=== PATIENT | male | born 1965 | race Two or more races ===

== ENCOUNTER 2016-12-22 14:53 | Inpatient (IN) | payer OTHER ==
[2016-12-22 16:45] VITALS: BMI 23.1
--- NOTE | 2016-12-22 17:59 | HP ---
COWS - Scale Resting Pulse: 0= [place] 80 or Below Sweatin=Flushed/Facial Moisture Restless Observation: 3= Extraneous Movement Pupil Size: 2= Moderately Dilated Bone or Joint Aches: 2= Severe Diffuse Aches Runny Nose/ Eye Tearin= Runny Nose/Eyes GI Upset > 30mins: 3= Vomiting/Diarrhea Tremor Observation: 2= Slight Tremor Visible Yawning Observation: 2= >3x During Session Anxiety or Irritability: 2=Irritable/Anxious Goose Flesh Skin: 0=Smooth Skin COWS Score: 20 CIWA Score - CIWA Score Nausea/Vomitin Muscle Tremors: 3 Anxiety: 3 Agitation: 3 Paroxysmal Sweats: 2 Orientation: 0-Oriented Tacttile Disturbances: 2-Mild Itch/Numbness/Burn Auditory Disturbances: 2-Mild Harshness/Frighten Visual Disturbances: 2-Mild Sensitivity Headache: 2-Mild CIWA-Ar Total Score: 22 Admission ROS BHS - HPI Chief Complaint: i need help to stop using heroin,alcohol and cocaine Allergies/Adverse Reactions: Allergies Allergy/AdvReac Type Severity Reaction Status Date / Time No Known Allergies Allergy Verified 12/22/16 16:26 History of Present Illness: this 51 years old male iwth heroin,alcohol and cocaine dependence,seekig detox, last treatment [facility] 07/05 multiple admissions in detox,keep relapsing nicotine dependence weight loss longest period of sobriety 10 years Exam Limitations: No Limitations - Ebola screening Have you traveled outside of the country in the last 21 days: No Have you had contact with anyone from an Ebola affected area: No Do you have a fever: No - Review of Systems Constitutional: Chills, Diaphoresis, Loss of Appetite, Malaise, Night Sweats, Changes in sleep, Weakness, Unintentional Wgt. Loss EENT: reports: Tearing, Nose Congestion Respiratory: reports: Other (asthma) Cardiac: reports: No Symptoms Reported GI: reports: Diarrhea, Nausea, Vomiting, Abdominal cramping : reports: No Symptoms Reported Musculoskeletal: reports: Back Pain, Joint Pain, Muscle Pain, Joint Stiffness Integumentary: reports: Dryness Neuro: reports: Headache, Tremors Endocrine: reports: No Symptoms Reported Hematology: reports: No Symptoms Reported Psychiatric: reports: No Sypmtoms Reported, Judgement Intact, Mood/Affect Appropiate, Orientated x3 Patient History - Patient Medical History Hx Anemia: No Hx Asthma: Yes (on albuerol inhlaer) Hx Chronic Obstructive Pulmonary Disease (COPD): No Hx Cancer: No Hx Cardiac Disorders: No Hx Congestive Heart Failure: No Hx Hypertension: Yes (on amlodipine 10 mgs) Hx Hypercholesterolemia: No Hx Pacemaker: No HX Cerebrovascular Accident: No Hx Seizures: No Hx Dementia: No Hx Diabetes: No Hx Gastrointestinal Disorders: No Hx Liver Disease: No Hx Genitourinary Disorders: No Hx Sexually Transmitted Disorders: No Hx Renal Disease (ESRD): No Hx Thyroid Disease: No Hx Human Immunodeficiency Virus (HIV): No (last 10/02) Hx Hepatitis C: Yes (being monitored by pmd) Hx Depression: No Hx Suicide Attempt: No Hx Bipolar Disorder: No Hx Schizophrenia: No Other Medical History: no suicidal,no homicidal - Patient Surgical History Past Surgical History: No Hx Neurologic Surgery: No Hx Cataract Extraction: No Hx Cardiac Surgery: No Hx Lung Surgery: No Hx Breast Surgery: No Hx Breast Biopsy: No Hx Abdominal Surgery: Yes (LT INGUINAL HERNIA-2014) Hx Appendectomy: No Hx Cholecystectomy: No Hx Genitourinary Surgery: No Hx Orthopedic Surgery: No Anesthesia Reaction: No - PPD History Previous Implant?: Yes Documented Results: Negative w/proof Implanted On Prior [facility] Admission?: Yes Date: 03/05/12 PPD to be Administered?: Yes - Smoking Cessation Smoking history: Current every day smoker Aproximately how many cigarettes per day: 20 Hx Chewing Tobacco Use: No Initiated information on smoking cessation: Yes 'Breaking Loose' booklet given: 12/22/16 - Substance & Tx. History Hx Alcohol Use: Yes Hx Substance Use: Yes Substance Use Type: Alcohol, Cocaine, Heroin Hx Substance Use Treatment: Yes ([facility] 07/05) - Substances Abused Alcohol Route: Oral Frequency: Daily Amount used: VODKA(2 PINTS) Age of first use: 20 Date of Last Use: 12/21/16 Heroin Route: Injection Frequency: Daily Amount used: 10-15 BAGS Age of first use: 25 Date of Last Use: 12/21/16 Cocaine Route: Injection Frequency: Daily Amount used: 4 BAGS Age of first use: 20 Date of Last Use: 12/21/16 Family Disease History - Family Disease History Family History: Denies Admission Physical Exam BHS - Vital Signs Vital Signs: Vital Signs - 24 hr 12/22/16 16:31 Temperature 97.3 F L Pulse Rate 58 L Respiratory 20 Rate Blood Pressure 120/80 - Physical General Appearance: Yes: Moderate Distress, Tremorous, Irritable, Sweating, Anxious HEENTM: Yes: Hearing grossly Normal, Normocephalic, NALINI, Pharynx Normal Respiratory: Yes: Lungs Clear, Normal Breath Sounds, No Respiratory Distress Neck: Yes: Within Normal Limits, Supple, Trachea in good position Breast: Yes: Within Normal Limits Cardiology: Yes: Within Normal Limits, Regular Rhythm, Regular Rate, S1, S2 Abdominal: Yes: Within Normal Limits, Normal Bowel Sounds, Non Tender, Flat, Soft Genitourinary: Yes: Within Normal Limits, Burning, Frequency, [place]ing Back: Yes: Within Normal Limits, Muscle Spasm Musculoskeletal: Yes: full range of Motion, Back pain, Joint Stiffness, Muscle Pain Extremities: Yes: Normal Range of Motion, Tremors Neurological: Yes: fluid designer II-XII NML intact, Fully Oriented, Alert, Motor Strength 5/5 Integumentary: Yes: Dry, Track Rapp Lymphatic: Yes: Within Normal Limits - Diagnostic (1) Opioid dependence with withdrawal Current Visit: Yes Status: Acute (2) Alcohol dependence with uncomplicated withdrawal Current Visit: Yes Status: Acute (3) Cocaine dependence Current Visit: No Status: Active (4) Weight loss Current Visit: Yes Status: Acute (5) Hepatitis C Current Visit: Yes Status: Acute (6) Nicotine dependence Current Visit: Yes Status: Acute (7) Asthma Current Visit: Yes Status: Acute (8) Hypertension Current Visit: Yes Status: Acute Cleared for Admission [facility] - Detox or Rehab [facility] Level of Care: Medically Managed Detox Regimen/Protocol: Methadone/Librium [facility] Breath Alcohol Content Breath Alcohol Content: 0 Urine Drug Screen - Results Drug Screen Negative: No Urine Drug Screen Results: ANN-Cocaine, OPI-Opiates
[2016-12-22] MEDS ORDERED: diphenhydrAMINE HCL 50 MG CAPSULE PO PRN (18:19)
[2016-12-22] MEDS ORDERED: IBUPROFEN 400 MG TABLET (FP) PO PRN (18:19)
[2016-12-22] MEDS ORDERED: chlordiazePOXIDE HCL 25 MG CAPSULE PO ONE (18:19)
[2016-12-22] MEDS ORDERED: LOPERAMIDE HCL 2 MG CAPSULE PO PRN (18:19)
[2016-12-22] MEDS ORDERED: ACETAMINOPHEN 325 MG TABLET (FP) PO PRN (18:19)
[2016-12-22] MEDS ORDERED: MENTHOL/PHENOL 1 EACH UD MM PRN (18:19)
[2016-12-22] MEDS ORDERED: NICOTINE POLACRILEX 2 MG GUM BUC PRN (18:19)
[2016-12-22] MEDS ORDERED: chlordiazePOXIDE HCL 25 MG CAPSULE PO PRN (18:19)
[2016-12-22] MEDS ORDERED: MAGNESIUM CITRATE 300 ML BOTTLE PO PRN (18:19)
[2016-12-22] MEDS ORDERED: hydrOXYzine PAMOATE 25 MG CAPSULE (FP) PO PRN (18:19)
[2016-12-22] MEDS ORDERED: METHADONE HCL 10 MG TABLET (FOR DETOX USE ONLY) PO ONE ×2 (18:19→23:00)
[2016-12-22] MEDS ORDERED: MAGNESIUM HYDROX 2400MG/30ML ORAL SUSPENSION 30 ML CUP PO PRN (18:19)
[2016-12-22] MEDS ORDERED: guaiFENesin/D-METHORPHAN HB 10 ML UNIT-DOSE CUPS PO PRN (18:19)
[2016-12-22] MEDS ORDERED: P-EPHED 60MG/TRIPROLIDI 2.5MG TABLET PO PRN (18:19)
[2016-12-22] MEDS ORDERED: MAG HYDROX/AL HYDROX/SIMETH 30 ML UNIT-DOSE CUP PO PRN (18:19)
[2016-12-22] MEDS ORDERED: ALBUTEROL SO4 6.7 GM HFA INHALER IH PRN (18:25)
[2016-12-22] MEDS: amLODIPine BESYLATE 10 MG TABLET (FP) PO SCH (18:45)
[2016-12-22] MEDS: cloNIDine HCL 0.1 MG TABLET PO SCH (22:28)
[2016-12-22] MEDS: THIAMINE HCL 100 MG TABLET (FP) PO SCH (22:28)
[2016-12-22] MEDS: chlordiazePOXIDE HCL 25 MG CAPSULE PO SCH (22:29)
[2016-12-23] MEDS: chlordiazePOXIDE HCL 25 MG CAPSULE PO SCH ×4 (05:42→23:02)
[2016-12-23] MEDS ORDERED: METHADONE HCL 10 MG TABLET (FOR DETOX USE ONLY) PO SCH (10:00)
[2016-12-23 10:02] LABS: MCH 27.7 pg (25.7-33.7); MCHC 32.7 g/dl (32.0-35.9); MEAN CELL VOLUME 84.8 fl (80-96); MEAN PLT VOLUME 9.3 fl (7.5-11.1); PLATELET COUNT 136 K/MM3 (134-434); RDW 14.9 % (11.9-15.9); WHITE BLOOD COUNT 5.3 K/mm3 (4.0-10.0)
[2016-12-23 10:30] LABS: ALBUMIN 3.6 g/dl (3.4-5.0); ALK PHOS 54 U/L (45-117); ANION GAP 5 (8-16); BILIRUBIN,TOTAL 0.4 mg/dL (0.2-1.0); CALCIUM 8.8 mg/dL (8.5-10.1); CO2 31 mmol/L (21-32); CREATININE 0.6 mg/dL (0.7-1.3); GLUCOSE,RANDOM 85 mg/dL (74-106); SGOT/AST 23 U/L (15-37); SGPT/ALT 34 U/L (12-78); TOT PROT 7.5 g/dl (6.4-8.2)
[2016-12-23] MEDS: PRENATAL VITAMINS W/ FOLIC ACID TABLET (FP) PO SCH (10:36)
[2016-12-23] MEDS: cloNIDine HCL 0.1 MG TABLET PO SCH ×2 (10:36→23:02)
[2016-12-23] MEDS: amLODIPine BESYLATE 10 MG TABLET (FP) PO SCH (10:36)
[2016-12-23 12:08] LABS: HIV 1 & 2 AB NEGATIVE; HIV 1 AGp24 NEGATIVE
--- NOTE | 2016-12-23 14:16 | PN ---
S CIWA - CIWA Score Nausea/Vomitin-Mild Nausea/No Vomiting Muscle Tremors: 4-Moderate,w/Arms Extend Anxiety: 2 Agitation: 3 Paroxysmal Sweats: 3 Orientation: 0-Oriented Tacttile Disturbances: 2-Mild Itch/Numbness/Burn Auditory Disturbances: 0-None Visual Disturbances: 2-Mild Sensitivity Headache: 3-Moderate CIWA-Ar Total Score: 20 BHS COWS - Scale Resting Pulse: 0= [place] 80 or Below Sweatin= Chills/Flushing Restless Observation: 1= Difficult to Sit Still Pupil Size: 0= Normal to Room Light Bone or Joint Aches: 2= Severe Diffuse Aches Runny Nose/ Eye Tearin= Runny Nose/Eyes GI Upset > 30mins: 1= Stomach Cramp Tremor Observation of Outstretched Hands: 2= Slight Tremor Visible Yawning Observation: 2= >3x During Session Anxiety or Irritability: 2=Irritable/Anxious Goose Flesh Skin: 0=Smooth Skin COWS Score: 13 S Progress Note (SOAP) Subjective: Interrupted Sleep, Fatigue, H/A, Tremors, Body Aches, Sweating. Objective: PT. A & O X 3. NO ACUTE DISTRESS. 12/23/16 14:14 Vital Signs Temperature 96.7 F L 12/23/16 13:19 Pulse Rate 59 L 12/23/16 13:19 Respiratory Rate 18 12/23/16 13:19 Blood Pressure 116/83 12/23/16 13:19 O2 Sat by Pulse Oximetry (%) Laboratory Tests 12/23/16 12/23/16 12/23/16 07:00 07:00 07:00 WBC 5.3 D RBC 5.19 Hgb 14.4 Hct 44.0 MCV 84.8 MCH 27.7 MCHC 32.7 RDW 14.9 Plt Count 136 MPV 9.3 Sodium 140 Potassium 4.5 Chloride 104 Carbon Dioxide 31 Anion Gap 5 L BUN 13 Creatinine 0.6 L D Creat Clearance w eGFR > 60 Random Glucose 85 D Calcium 8.8 Total Bilirubin 0.4 D AST 23 ALT 34 D Alkaline Phosphatase 54 Total Protein 7.5 Albumin 3.6 RPR Titer HIV 1&2 Antibody Screen Negative HIV P24 Antigen Negative 12/23/16 07:00 WBC RBC Hgb Hct MCV MCH MCHC RDW Plt Count MPV Sodium Potassium Chloride Carbon Dioxide Anion Gap BUN Creatinine Creat Clearance w eGFR Random Glucose Calcium Total Bilirubin AST ALT Alkaline Phosphatase Total Protein Albumin RPR Titer Nonreactive HIV 1&2 Antibody Screen HIV P24 Antigen LABS NOTED. UA RESULTS PENDING. 12/23/16 14:16 Assessment: 12/23/16 14:14 WITHDRAWAL SYMPTOMS. Plan: CONTINUE DETOX.
[2016-12-23] MEDS: CYCLOBENZAPRINE HCL 10 MG TABLET (FP) PO PRN (15:24)
[2016-12-23 15:33] LABS: URINE APPEARANCE CLEAR; URINE BILIRUBIN NEGATIVE (NEGATIVE); URINE BLOOD NEGATIVE (NEGATIVE); URINE COLOR LTYELLOW; URINE GLUCOSE (UA) NEGATIVE (NEGATIVE); URINE KETONE NEGATIVE (NEGATIVE); URINE LEUK ESTERASE NEGATIVE (NEGATIVE); URINE NITRITE NEGATIVE (NEGATIVE); URINE PROTEIN NEGATIVE (NEGATIVE); URINE UROBILINOGEN NEGATIVE mg/dL (0.2-1.0)
[2016-12-23] MEDS: THIAMINE HCL 100 MG TABLET (FP) PO SCH (23:02)
[2016-12-24] MEDS: chlordiazePOXIDE HCL 25 MG CAPSULE PO SCH ×3 (05:22→17:25)
[2016-12-24] MEDS: PRENATAL VITAMINS W/ FOLIC ACID TABLET (FP) PO SCH (10:34)
[2016-12-24] MEDS: METHADONE HCL 5 MG TABLET (FOR DETOX USE ONLY) PO SCH (10:34)
[2016-12-24] MEDS: cloNIDine HCL 0.1 MG TABLET PO SCH ×2 (10:34→22:12)
[2016-12-24] MEDS: amLODIPine BESYLATE 10 MG TABLET (FP) PO SCH (10:34)
--- NOTE | 2016-12-24 11:30 | PN ---
[facility] CIWA - CIWA Score Nausea/Vomitin-No Nausea/No Vomiting Muscle Tremors: 4-Moderate,w/Arms Extend Anxiety: 4-Mod. Anxious/Guarded Agitation: 4-Moderately Restless Paroxysmal Sweats: 1-Minimal Palms Moist Orientation: 0-Oriented Tacttile Disturbances: 3-Moderate Itch/Numb/Burn Auditory Disturbances: 0-None Visual Disturbances: 0-None Headache: 0-None Present CIWA-Ar Total Score: 16 S COWS - Scale Resting Pulse: 0= [place] 80 or Below Sweatin= Chills/Flushing Restless Observation: 3= Extraneous Movement Pupil Size: 2= Moderately Dilated Bone or Joint Aches: 4=Acute Joint/Muscle Pain Runny Nose/ Eye Tearin= Nasal Congestion GI Upset > 30mins: 1= Stomach Cramp Tremor Observation of Outstretched Hands: 1= Tremor [place], Not Seen Yawning Observation: 1= 1-2x During Session Anxiety or Irritability: 2=Irritable/Anxious Goose Flesh Skin: 0=Smooth Skin COWS Score: 16 [facility] Progress Note (SOAP) Subjective: ANXIETY,SWEATS,TREMORS,INTERMITTENT SLEEP. Objective: 12/24/16 11:29 Vital Signs Temperature 96.3 F L 12/24/16 09:22 Pulse Rate 63 12/24/16 09:22 Respiratory Rate 16 12/24/16 09:22 Blood Pressure 119/83 12/24/16 09:22 O2 Sat by Pulse Oximetry (%) Laboratory Last Values WBC 5.3 K/mm3 (4.0-10.0) D 12/23/16 07:00 RBC 5.19 M/mm3 (4.00-5.60) 12/23/16 07:00 Hgb 14.4 GM/dL (11.7-16.9) 12/23/16 07:00 Hct 44.0 % (35.4-49) 12/23/16 07:00 MCV 84.8 fl (80-96) 12/23/16 07:00 MCH 27.7 pg (25.7-33.7) 12/23/16 07:00 MCHC 32.7 g/dl (32.0-35.9) 12/23/16 07:00 RDW 14.9 % (11.9-15.9) 12/23/16 07:00 Plt Count 136 K/MM3 (134-434) 12/23/16 07:00 MPV 9.3 fl (7.5-11.1) 12/23/16 07:00 Sodium 140 mmol/L (136-145) 12/23/16 07:00 Potassium 4.5 mmol/L (3.5-5.1) 12/23/16 07:00 Chloride 104 mmol/L (98-107) 12/23/16 07:00 Carbon Dioxide 31 mmol/L (21-32) 12/23/16 07:00 Anion Gap 5 (8-16) L 12/23/16 07:00 BUN 13 mg/dL (7-18) 12/23/16 07:00 Creatinine 0.6 mg/dL (0.7-1.3) L D 12/23/16 07:00 Creat Clearance w eGFR > 60 (>60) 12/23/16 07:00 Random Glucose 85 mg/dL (74-106) D 12/23/16 07:00 Calcium 8.8 mg/dL (8.5-10.1) 12/23/16 07:00 Total Bilirubin 0.4 mg/dL (0.2-1.0) D 12/23/16 07:00 AST 23 U/L (15-37) 12/23/16 07:00 ALT 34 U/L (12-78) D 12/23/16 07:00 Alkaline Phosphatase 54 U/L (45-117) 12/23/16 07:00 Total Protein 7.5 g/dl (6.4-8.2) 12/23/16 07:00 Albumin 3.6 g/dl (3.4-5.0) 12/23/16 07:00 Urine Color Ltyellow 12/23/16 13:25 Urine Appearance Clear 12/23/16 13:25 Urine pH 8.0 (5.0-8.0) D 12/23/16 13:25 Ur Specific [place] 1.015 (1.005-1.025) 12/23/16 13:25 Urine Protein Negative (NEGATIVE) 12/23/16 13:25 Urine Glucose (UA) Negative (NEGATIVE) 12/23/16 13:25 Urine Ketones Negative (NEGATIVE) 12/23/16 13:25 Urine Blood Negative (NEGATIVE) 12/23/16 13:25 Urine Nitrite Negative (NEGATIVE) 12/23/16 13:25 Urine Bilirubin Negative (NEGATIVE) 12/23/16 13:25 Urine Urobilinogen Negative mg/dL (0.2-1.0) 12/23/16 13:25 Ur Leukocyte Esterase Negative (NEGATIVE) 12/23/16 13:25 RPR Titer Nonreactive (NONREACTIVE) 12/23/16 07:00 HIV 1&2 Antibody Screen Negative 12/23/16 07:00 HIV P24 Antigen Negative 12/23/16 07:00 Assessment: 12/24/16 11:29 WITHDRAWAL SX Plan: CONTINUE DETOX
[2016-12-24] MEDS: chlordiazePOXIDE 5 MG CAPSULE PO SCH (22:12)
[2016-12-24] MEDS: THIAMINE HCL 100 MG TABLET (FP) PO SCH (22:12)
[2016-12-25] MEDS: chlordiazePOXIDE 5 MG CAPSULE PO SCH ×2 (05:48→10:22)
[2016-12-25] MEDS: PRENATAL VITAMINS W/ FOLIC ACID TABLET (FP) PO SCH (10:21)
[2016-12-25] MEDS: cloNIDine HCL 0.1 MG TABLET PO SCH (10:21)
[2016-12-25] MEDS: CYCLOBENZAPRINE HCL 10 MG TABLET (FP) PO PRN (10:22)
[2016-12-25] MEDS: METHADONE HCL 5 MG TABLET (FOR DETOX USE ONLY) PO SCH (10:22)
[2016-12-25] MEDS: amLODIPine BESYLATE 10 MG TABLET (FP) PO SCH (10:22)
--- NOTE | 2016-12-25 11:44 | PN ---
BHS Progress Note (SOAP) Subjective: ANXIETY,TREMORS,SWEATS,FATIGUE. Objective: 12/25/16 11:43 Vital Signs Temperature 96.9 F L 12/25/16 09:33 Pulse Rate 70 12/25/16 09:33 Respiratory Rate 18 12/25/16 09:33 Blood Pressure 125/83 12/25/16 09:33 O2 Sat by Pulse Oximetry (%) Assessment: 12/25/16 11:43 WITHDRAWAL SX Plan: CONTINUE DETOX
[2016-12-25 13:47] VITALS: BP 116/67; PULSE 84; TEMP 98.7
--- NOTE | 2016-12-25 14:52 | EKG ---
Test Reason : Blood Pressure : / mmHG Vent. Rate : 050 BPM Atrial Rate : 050 BPM P-R Int : 128 ms QRS Dur : 100 ms QT Int : 436 ms P-R-T Axes : 075 075 052 degrees QTc Int : 397 ms SINUS BRADYCARDIA OTHERWISE NORMAL ECG NO PREVIOUS ECGS AVAILABLE Confirmed by LISA BEAL MD ([id number]) on 12/25/2016 2:52:10 PM Referred By: Confirmed By:LISA BEAL MD
--- NOTE | 2016-12-25 15:41 | DS ---
[facility] Detox Discharge Summary Admission Date: 12/22/16 Discharge Date: 12/25/16 - History Present History: Alcohol Dependence, Opioid Dependence Additional Comments: PT DECLINED TO CONTINUE WITH DETOX DESPITE ALL EFFORTS TO ENCOURAGE PT TO STAY AND COMPLETE TX. PT STATES HE IS GOING TO TAKE CARE OF UNFINISHED BUSINESS ABOUT HIS DOCUMENTS IN THE ASSISTED. ALERT O X 3. NAD. Pertinent Past History: ASTHMA HTN HEP C - Physical Exam Results Vital Signs: Vital Signs Temperature 98.7 F 12/25/16 13:47 Pulse Rate 84 12/25/16 13:47 Respiratory Rate 16 12/25/16 13:47 Blood Pressure 116/67 12/25/16 13:47 O2 Sat by Pulse Oximetry (%) Pertinent Admission Physical Exam Findings: WITHDRAWAL SX Laboratory Last Values WBC 5.3 K/mm3 (4.0-10.0) D 12/23/16 07:00 RBC 5.19 M/mm3 (4.00-5.60) 12/23/16 07:00 Hgb 14.4 GM/dL (11.7-16.9) 12/23/16 07:00 Hct 44.0 % (35.4-49) 12/23/16 07:00 MCV 84.8 fl (80-96) 12/23/16 07:00 MCH 27.7 pg (25.7-33.7) 12/23/16 07:00 MCHC 32.7 g/dl (32.0-35.9) 12/23/16 07:00 RDW 14.9 % (11.9-15.9) 12/23/16 07:00 Plt Count 136 K/MM3 (134-434) 12/23/16 07:00 MPV 9.3 fl (7.5-11.1) 12/23/16 07:00 Sodium 140 mmol/L (136-145) 12/23/16 07:00 Potassium 4.5 mmol/L (3.5-5.1) 12/23/16 07:00 Chloride 104 mmol/L (98-107) 12/23/16 07:00 Carbon Dioxide 31 mmol/L (21-32) 12/23/16 07:00 Anion Gap 5 (8-16) L 12/23/16 07:00 BUN 13 mg/dL (7-18) 12/23/16 07:00 Creatinine 0.6 mg/dL (0.7-1.3) L D 12/23/16 07:00 Creat Clearance w eGFR > 60 (>60) 12/23/16 07:00 Random Glucose 85 mg/dL (74-106) D 12/23/16 07:00 Calcium 8.8 mg/dL (8.5-10.1) 12/23/16 07:00 Total Bilirubin 0.4 mg/dL (0.2-1.0) D 12/23/16 07:00 AST 23 U/L (15-37) 12/23/16 07:00 ALT 34 U/L (12-78) D 12/23/16 07:00 Alkaline Phosphatase 54 U/L (45-117) 12/23/16 07:00 Total Protein 7.5 g/dl (6.4-8.2) 12/23/16 07:00 Albumin 3.6 g/dl (3.4-5.0) 12/23/16 07:00 Urine Color Ltyellow 12/23/16 13:25 Urine Appearance Clear 12/23/16 13:25 Urine pH 8.0 (5.0-8.0) D 12/23/16 13:25 Ur Specific [place] 1.015 (1.005-1.025) 12/23/16 13:25 Urine Protein Negative (NEGATIVE) 12/23/16 13:25 Urine Glucose (UA) Negative (NEGATIVE) 12/23/16 13:25 Urine Ketones Negative (NEGATIVE) 12/23/16 13:25 Urine Blood Negative (NEGATIVE) 12/23/16 13:25 Urine Nitrite Negative (NEGATIVE) 12/23/16 13:25 Urine Bilirubin Negative (NEGATIVE) 12/23/16 13:25 Urine Urobilinogen Negative mg/dL (0.2-1.0) 12/23/16 13:25 Ur Leukocyte Esterase Negative (NEGATIVE) 12/23/16 13:25 RPR Titer Nonreactive (NONREACTIVE) 12/23/16 07:00 HIV 1&2 Antibody Screen Negative 12/23/16 07:00 HIV P24 Antigen Negative 12/23/16 07:00 - Treatment Hospital Course: Discharged Condition Good - Medication Discharge Medications: Ambulatory Orders Albuterol Sulfate Inhaler - [Ventolin Hfa *Inhaler*] 1 - 2 inh IH Q4H 03/02/12 Amlodipine Besylate [Norvasc -] 10 mg PO DAILY 12/22/16 - Diagnosis (1) Alcohol dependence with uncomplicated withdrawal Current Visit: Yes Status: Acute (2) Asthma Current Visit: Yes Status: Chronic Qualifiers: Asthma severity: mild intermittent Asthma complication type: uncomplicated Qualified Code(s): J45.20 - Mild intermittent asthma, uncomplicated (3) Hepatitis C Current Visit: Yes Status: Chronic Qualifiers: Viral hepatitis chronicity: unspecified (4) Hypertension Current Visit: Yes Status: Acute Qualifiers: Hypertension type: essential hypertension Qualified Code(s): I10 - Essential (primary) hypertension (5) Nicotine dependence Current Visit: Yes Status: Acute Qualifiers: Nicotine product type: cigarettes Substance use status: in withdrawal Qualified Code(s): F17.213 - Nicotine dependence, cigarettes, with withdrawal (6) Opioid dependence with withdrawal Current Visit: Yes Status: Acute (7) Weight loss Current Visit: Yes Status: Acute - AMA Did Patient Leave Against Medical Advice: Yes (AMA)
[2016-12-25] MEDS ORDERED: chlordiazePOXIDE HCL 10 MG CAPSULE PO SCH (23:00)
[2016-12-26] MEDS ORDERED: METHADONE HCL 10 MG TABLET (FOR DETOX USE ONLY) PO SCH (10:00)
[2016-12-27] MEDS ORDERED: METHADONE HCL 5 MG TABLET (FOR DETOX USE ONLY) PO SCH (06:00)
== END 2016-12-25 15:20 | disposition left against medical advice (07) | DRG 770 ==
LOC: YASAS 14:53 → Y3N 15:49
PROVIDERS: ADMIT Internal Medicine; ATTEND Internal Medicine
PROC: HZ2ZZZZ Detoxification Services for Substance Abuse Treatment (ICD-10-PCS; principal; 2016-12-22)
DX: F11.23 Opioid dependence with withdrawal (principal); F10.230 Alcohol dependence with withdrawal, uncomplicated; F14.20 Cocaine dependence, uncomplicated; F17.210 Nicotine dependence, cigarettes, uncomplicated; J45.20 Mild intermittent asthma, uncomplicated; B18.2 Chronic viral hepatitis C; I10 Essential (primary) hypertension; Z87.898 Personal history of other specified conditions; Z59.0 Homelessness
CPT/HCPCS: 36415; 80053; 81003; 85027; 86593; 87389; 93005; 93010

== ENCOUNTER 2017-10-03 11:59 | Inpatient (IN) | payer OTHER ==
[2017-10-03 13:12] VITALS: BMI 23.2
--- NOTE | 2017-10-03 16:44 | HP ---
COWS - Scale Resting Pulse: 1= [place] 81-100 Sweatin= Beads of Sweat on Face Restless Observation: 1= Difficult to Sit Still Pupil Size: 1= Pupils >than Normal Bone or Joint Aches: 1= Mild Discomfort Runny Nose/ Eye Tearin= Nasal Congestion GI Upset > 30mins: 0= None Tremor Observation: 2= Slight Tremor Visible Yawning Observation: 1= 1-2x During Session Anxiety or Irritability: 1=Feels Anxious/Irritable Goose Flesh Skin: 0=Smooth Skin COWS Score: 12 Admission ROS BHS - HPI Chief Complaint: Here for heroin and cocaine withdrawal. Wants to complete detox Allergies/Adverse Reactions: Allergies Allergy/AdvReac Type Severity Reaction Status Date / Time No Known Allergies Allergy Verified 10/03/17 17:37 History of Present Illness: Hx heroin and cocaine use since age 25. Has had several lengthy sober episodes after detox. Wants to complete detox and go to rehab. No hx of outpatient MAT. Past hx. elevated blood pressure but w/o meds x 2 years. Hx. asthma - usually exacerbates in Spring/Summer. Denies recent relapse. Exam Limitations: No Limitations - Ebola screening Have you traveled outside of the country in the last 21 days: No (N) Have you had contact with anyone from an Ebola affected area: No Have you been sick,other than usual withdrawal symptoms: No Do you have a fever: No - Review of Systems Constitutional: Unintentional Wgt. Loss (States weight loss r/t drug use and less desire to eat.) EENT: reports: Nose Congestion Respiratory: reports: No Symptoms reported Cardiac: reports: No Symptoms Reported GI: reports: No Symptoms Reported : reports: No Symptoms Reported Musculoskeletal: reports: Back Pain (R/t withdrawal) Integumentary: reports: Other (Itchy feet - State has a fungus.) Neuro: reports: Tingling (In body r/t w/drawal) Endocrine: reports: No Symptoms Reported Hematology: reports: No Symptoms Reported Psychiatric: reports: Orientated x3, Agitated (r/t withdrawal), Anxious (r/t withdrawal) Patient History - Patient Medical History Hx Anemia: No Hx Asthma: Yes (on albuterol inhlaer) Hx Chronic Obstructive Pulmonary Disease (COPD): No Hx Cancer: No Hx Cardiac Disorders: No Hx Congestive Heart Failure: No Hx Hypertension: Yes (Was on amlodipine 10 mgs. Not in past 2 years.) Hx Hypercholesterolemia: No Hx Pacemaker: No HX Cerebrovascular Accident: No Hx Seizures: No Hx Dementia: No Hx Diabetes: No Hx Gastrointestinal Disorders: No Hx Liver Disease: No Hx Genitourinary Disorders: No Hx Sexually Transmitted Disorders: No Hx Renal Disease (ESRD): No Hx Thyroid Disease: No Hx Human Immunodeficiency Virus (HIV): No (last 10/02) Hx Hepatitis C: Yes (being monitored by pmd. No Tx.) Hx Depression: No Hx Suicide Attempt: No Hx Bipolar Disorder: No Hx Schizophrenia: No - Patient Surgical History Past Surgical History: No Hx Neurologic Surgery: No Hx Cataract Extraction: No Hx Cardiac Surgery: No Hx Lung Surgery: No Hx Breast Surgery: No Hx Breast Biopsy: No Hx Abdominal Surgery: Yes (LT INGUINAL HERNIA-2015) Hx Appendectomy: No Hx Cholecystectomy: No Hx Genitourinary Surgery: No Hx Orthopedic Surgery: No Anesthesia Reaction: No - PPD History Previous Implant?: Yes Documented Results: Negative w/o proof Date: 12/24/16 PPD to be Administered?: Yes - Reproductive History Patient is a Female of Child Bearing Age (11 -55 yrs old): No - Smoking Cessation Smoking history: Current every day smoker Have you smoked in the past 12 months: Yes Aproximately how many cigarettes per day: 20 Hx Chewing Tobacco Use: No Initiated information on smoking cessation: Yes 'Breaking Loose' booklet given: 10/03/17 - Substance & Tx. History Hx Alcohol Use: No Hx Substance Use: Yes Substance Use Type: Cocaine, Heroin - Substances Abused Heroin Route: Injection Frequency: Daily Amount used: 20 bags/day Age of first use: 25 Date of Last Use: 10/03/17 (5 am) Cocaine Route: also uses IV Frequency: Daily Amount used: $40/day Age of first use: 25 Date of Last Use: 10/03/17 (3 am ) Family Disease History - Family Disease History Family Disease History: Diabetes: Grandparent (GM - r/t DM), CA: Sister (Pancreatic) Admission Physical Exam BHS - Vital Signs Vital Signs: Vital Signs - 24 hr 10/03/17 13:09 Temperature 96.8 F L Pulse Rate 83 Respiratory 18 Rate Blood Pressure 145/87 - Physical General Appearance: Yes: Nourished, Appropriately Dressed, Tremorous (Mild tremors on hand extension) HEENTM: Yes: EOMI, Hearing grossly Normal, Normocephalic, Normal Voice, NALINI ( Pupils a3 3 mm.), Nasal Congestion Respiratory: Yes: Lungs Clear, Normal Breath Sounds, No Respiratory Distress, No Accessory Muscle Use Neck: Yes: No masses,lesions,Nodules, Supple Breast: Yes: Breast Exam Deferred Cardiology: Yes: Regular Rhythm, Regular Rate, Murmur (Murmur noted. No associated SOB, CP, edema.) Abdominal: Yes: Normal Bowel Sounds, Non Tender, Flat, Soft Genitourinary: Yes: Within Normal Limits Back: Yes: Within Normal Limits Musculoskeletal: Yes: full range of Motion, Gait Steady Extremities: Yes: Normal Capillary Refill (Radial and pedal pulses (+)), Tremors (Mild tremors on hand extension) Neurological: Yes: forms designer II-XII NML intact, Fully Oriented, Alert, Motor Strength 5/5 Integumentary: Yes: Track Mosquera (Old and new track mosquera on arms), Other (dry, flaky toe nails and skin on both feet) - Diagnostic (1) Hypertension Current Visit: Yes Status: Chronic Qualifiers: Hypertension type: unspecified Qualified Code(s): I10 - Essential (primary ) hypertension (2) Nicotine dependence Current Visit: Yes Status: Acute Qualifiers: Nicotine product type: cigarettes Substance use status: in withdrawal Qualified Code(s): F17.213 - Nicotine dependence, cigarettes, with withdrawal (3) Opioid dependence with withdrawal Current Visit: Yes Status: Acute (4) Asthma Status: Chronic Qualifiers: Asthma severity: mild intermittent Asthma complication type: uncomplicated (5) Hepatitis C Current Visit: No Status: Chronic Qualifiers: Viral hepatitis chronicity: unspecified (6) Tinea pedis of both feet Current Visit: Yes Status: Acute (7) Cardiac murmur, unspecified Current Visit: Yes Status: Chronic BHS Breath Alcohol Content Breath Alcohol Content: 0 Urine Drug Screen - Results Drug Screen Negative: No Urine Drug Screen Results: ANN-Cocaine, OPI-Opiates
[2017-10-03] MEDS ORDERED: IBUPROFEN 400 MG TABLET (FP) PO PRN (17:56)
[2017-10-03] MEDS ORDERED: ACETAMINOPHEN 325 MG TABLET (FP) PO PRN (17:56)
[2017-10-03] MEDS ORDERED: guaiFENesin/D-METHORPHAN HB 10 ML UNIT-DOSE CUPS PO PRN (17:56)
[2017-10-03] MEDS ORDERED: MAGNESIUM HYDROX 2400MG/30ML ORAL SUSPENSION 30 ML CUP PO PRN (17:56)
[2017-10-03] MEDS ORDERED: MAG HYDROX/AL HYDROX/SIMETH 30 ML UNIT-DOSE CUP PO PRN (17:56)
[2017-10-03] MEDS ORDERED: LOPERAMIDE HCL 2 MG CAPSULE PO PRN (17:56)
[2017-10-03] MEDS ORDERED: MAGNESIUM CITRATE 300 ML BOTTLE PO PRN (17:56)
[2017-10-03] MEDS ORDERED: MENTHOL/PHENOL 1 EACH UD MM PRN (17:56)
[2017-10-03] MEDS ORDERED: P-EPHED 60MG/TRIPROLIDI 2.5MG TABLET PO PRN (17:56)
[2017-10-03] MEDS ORDERED: ALBUTEROL SO4 18 GM HFA INHALER IH PRN (18:00)
[2017-10-03] MEDS ORDERED: NICOTINE POLACRILEX 2 MG GUM BUC PRN (19:24)
[2017-10-03] MEDS ORDERED: METHADONE HCL 10 MG TABLET (FOR DETOX USE ONLY) PO ONE ×2 (19:30→23:00)
[2017-10-03] MEDS: diazePAM 5 MG TABLET PO PRN (20:56)
[2017-10-03] MEDS: CLOTRIMAZOLE 1% CREAM 15 GM TUBE TP SCH (22:32)
[2017-10-03] MEDS: THIAMINE HCL 100 MG TABLET (FP) PO SCH (22:32)
[2017-10-03] MEDS: MELATONIN 5 MG TABLETS PO PRN (22:33)
[2017-10-04 02:07] LABS: URINE APPEARANCE TURBID; URINE BILIRUBIN NEGATIVE (<2.0 mg/dL); URINE BLOOD NEGATIVE (NEGATIVE); URINE COLOR YELLOW; URINE GLUCOSE (UA) NEGATIVE (NEGATIVE); URINE KETONE NEGATIVE (NEGATIVE); URINE LEUK ESTERASE NEGATIVE (NEGATIVE); URINE NITRITE NEGATIVE (NEGATIVE); URINE PROTEIN NEGATIVE (NEGATIVE)
[2017-10-04] MEDS: diazePAM 5 MG TABLET PO PRN ×2 (05:53→22:52)
[2017-10-04] MEDS ORDERED: METHADONE HCL 10 MG TABLET (FOR DETOX USE ONLY) PO ONE (10:00)
[2017-10-04] MEDS: CLOTRIMAZOLE 1% CREAM 15 GM TUBE TP SCH ×2 (10:29→22:50)
[2017-10-04] MEDS: NICOTINE 21 MG/24 HOURS TOPICAL PATCH TD SCH (10:30)
[2017-10-04] MEDS: PRENATAL VITAMINS W/ FOLIC ACID TABLET (FP) PO SCH (10:30)
[2017-10-04 10:43] LABS: HEMATOCRIT 39.9 % (35.4-49); HEMOGLOBIN 13.3 GM/dL (11.7-16.9); MCH 27.7 pg (25.7-33.7); MCHC 33.4 g/dl (32.0-35.9); MEAN CELL VOLUME 82.9 fl (80-96); MEAN PLT VOLUME 9.6 fl (7.5-11.1); PLATELET COUNT 127 K/MM3 (134-434); RBC 4.81 M/mm3 (4.00-5.60); RDW 13.6 % (11.9-15.9); WHITE BLOOD COUNT 5.6 K/mm3 (4.0-10.0)
[2017-10-04 10:54] LABS: CHLORIDE 109 mmol/L (98-107); SODIUM 141 mmol/L (136-145)
[2017-10-04 11:13] LABS: ALBUMIN 3.1 g/dl (3.4-5.0); ALK PHOS 54 U/L (45-117); ANION GAP 8 (8-16); BILIRUBIN,TOTAL 0.6 mg/dL (0.2-1.0); BLOOD UREA NITROGEN 11 mg/dL (7-18); CALCIUM 8.2 mg/dL (8.5-10.1); CO2 24 mmol/L (21-32); CREATININE 0.7 mg/dL (0.7-1.3); GLUCOSE,RANDOM 97 mg/dL (74-106); SGPT/ALT 41 U/L (12-78); TOT PROT 7.4 g/dl (6.4-8.2)
[2017-10-04 11:15] LABS: POTASSIUM 4.1 mmol/L (3.5-5.1); SGOT/AST 36 U/L (15-37)
--- NOTE | 2017-10-04 13:51 | PN ---
BHS COWS - Scale Resting Pulse: 1= [place] 81-100 Sweatin=Flushed/Facial Moisture Restless Observation: 0= Sits Still Pupil Size: 0= Normal to Room Light Bone or Joint Aches: 1= Mild Discomfort Runny Nose/ Eye Tearin= Nasal Congestion GI Upset > 30mins: 1= Stomach Cramp Tremor Observation of Outstretched Hands: 2= Slight Tremor Visible Yawning Observation: 1= 1-2x During Session Anxiety or Irritability: 2=Irritable/Anxious Goose Flesh Skin: 0=Smooth Skin COWS Score: 11 BHS Progress Note (SOAP) Subjective: Sleep disturbance Sweats shakes abdominal cramp Objective: 10/04/17 13:47 A & O x 3 Redness to L Ac Vital Signs Temperature 97.9 F 10/04/17 09:30 Pulse Rate 77 10/04/17 09:30 Respiratory Rate 18 10/04/17 09:30 Blood Pressure 126/72 10/04/17 09:30 O2 Sat by Pulse Oximetry (%) Laboratory Last Values WBC 5.6 K/mm3 (4.0-10.0) 10/04/17 07:50 RBC 4.81 M/mm3 (4.00-5.60) 10/04/17 07:50 Hgb 13.3 GM/dL (11.7-16.9) 10/04/17 07:50 Hct 39.9 % (35.4-49) 10/04/17 07:50 MCV 82.9 fl (80-96) 10/04/17 07:50 MCH 27.7 pg (25.7-33.7) 10/04/17 07:50 MCHC 33.4 g/dl (32.0-35.9) 10/04/17 07:50 RDW 13.6 % (11.9-15.9) 10/04/17 07:50 Plt Count 127 K/MM3 (134-434) L 10/04/17 07:50 MPV 9.6 fl (7.5-11.1) 10/04/17 07:50 Sodium 141 mmol/L (136-145) 10/04/17 07:50 Potassium 4.1 mmol/L (3.5-5.1) 10/04/17 07:50 Chloride 109 mmol/L (98-107) H 10/04/17 07:50 Carbon Dioxide 24 mmol/L (21-32) D 10/04/17 07:50 Anion Gap 8 (8-16) 10/04/17 07:50 BUN 11 mg/dL (7-18) 10/04/17 07:50 Creatinine 0.7 mg/dL (0.7-1.3) 10/04/17 07:50 Creat Clearance w eGFR > 60 (>60) 10/04/17 07:50 Random Glucose 97 mg/dL (74-106) 10/04/17 07:50 Calcium 8.2 mg/dL (8.5-10.1) L 10/04/17 07:50 Total Bilirubin 0.6 mg/dL (0.2-1.0) D 10/04/17 07:50 AST 36 U/L (15-37) D 10/04/17 07:50 ALT 41 U/L (12-78) D 10/04/17 07:50 Alkaline Phosphatase 54 U/L (45-117) 10/04/17 07:50 Total Protein 7.4 g/dl (6.4-8.2) 10/04/17 07:50 Albumin 3.1 g/dl (3.4-5.0) L 10/04/17 07:50 Urine Color Yellow 10/03/17 22:25 Urine Appearance Turbid 10/03/17 22:25 Urine pH 5.0 (5.0-8.0) D 10/03/17 22:25 Ur Specific [place] 1.025 (1.001-1.035) 10/03/17 22:25 Urine Protein Negative (NEGATIVE) 10/03/17 22:25 Urine Glucose (UA) Negative (NEGATIVE) 10/03/17 22:25 Urine Ketones Negative (NEGATIVE) 10/03/17 22:25 Urine Blood Negative (NEGATIVE) 10/03/17 22:25 Urine Nitrite Negative (NEGATIVE) 10/03/17 22:25 Urine Bilirubin Negative (<2.0 mg/dL) 10/03/17 22:25 Urine Urobilinogen 2.0 mg/dL (0.2-1.0) 10/03/17 22:25 Ur Leukocyte Esterase Negative (NEGATIVE) 10/03/17 22:25 RPR Titer Nonreactive (NONREACTIVE) 10/04/17 07:50 Labs noted Assessment: 10/04/17 13:50 Withdrawal sx Pt states he had an abscess drained from his LAC, no signs of infection Plan: Continue detox Bacitracin for the L AC
--- NOTE | 2017-10-04 13:54 | CONSULT ---
[facility] Psychiatric Consult - Data Date of interview: 10/04/17 Admission source: [facility] Identifying data: mr Logan is approached on TWO occasions for the psychiatric interview.He refused. " I don't have psychiatric problems.Why should I talk to a psychiatrist ? Thank you." Nursing staff is made aware.
[2017-10-04] MEDS: BACITRACIN 0.9 GM PACKET TP SCH ×2 (14:57→22:50)
[2017-10-04] MEDS: THIAMINE HCL 100 MG TABLET (FP) PO SCH (22:50)
[2017-10-04] MEDS: MELATONIN 5 MG TABLETS PO PRN (22:51)
[2017-10-05] MEDS: diazePAM 5 MG TABLET PO PRN ×3 (06:13→20:43)
[2017-10-05] MEDS ORDERED: METHADONE HCL 5 MG TABLET (FOR DETOX USE ONLY) PO ONE (10:00)
[2017-10-05] MEDS: NICOTINE 21 MG/24 HOURS TOPICAL PATCH TD SCH (11:09)
[2017-10-05] MEDS: BACITRACIN 0.9 GM PACKET TP SCH ×2 (11:09→22:45)
[2017-10-05] MEDS: CLOTRIMAZOLE 1% CREAM 15 GM TUBE TP SCH ×2 (11:09→22:48)
[2017-10-05] MEDS: PRENATAL VITAMINS W/ FOLIC ACID TABLET (FP) PO SCH (11:10)
--- NOTE | 2017-10-05 12:39 | PN ---
S COWS - Scale Resting Pulse: 0= [place] 80 or Below Sweatin= Chills/Flushing Restless Observation: 1= Difficult to Sit Still Pupil Size: 0= Normal to Room Light Bone or Joint Aches: 2= Severe Diffuse Aches Runny Nose/ Eye Tearin= None GI Upset > 30mins: 0= None Tremor Observation of Outstretched Hands: 2= Slight Tremor Visible Yawning Observation: 2= >3x During Session Anxiety or Irritability: 2=Irritable/Anxious Goose Flesh Skin: 0=Smooth Skin COWS Score: 10 S Progress Note (SOAP) Subjective: irritable agitation body aches sweats chills Objective: 10/05/17 12:38 Vital Signs Temperature 97.5 F L 10/05/17 10:28 Pulse Rate 58 L 10/05/17 10:28 Respiratory Rate 16 10/05/17 10:28 Blood Pressure 139/93 10/05/17 10:28 O2 Sat by Pulse Oximetry (%) Laboratory Tests 10/03/17 10/04/17 10/04/17 22:25 07:50 07:50 WBC 5.6 RBC 4.81 Hgb 13.3 Hct 39.9 MCV 82.9 MCH 27.7 MCHC 33.4 RDW 13.6 Plt Count 127 L MPV 9.6 Sodium 141 Potassium 4.1 Chloride 109 H Carbon Dioxide 24 D Anion Gap 8 BUN 11 Creatinine 0.7 Creat Clearance w eGFR > 60 Random Glucose 97 Calcium 8.2 L Total Bilirubin 0.6 D AST 36 D ALT 41 D Alkaline Phosphatase 54 Total Protein 7.4 Albumin 3.1 L Urine Color Yellow Urine Appearance Turbid Urine pH 5.0 D Ur Specific [place] 1.025 Urine Protein Negative Urine Glucose (UA) Negative Urine Ketones Negative Urine Blood Negative Urine Nitrite Negative Urine Bilirubin Negative Urine Urobilinogen 2.0 Ur Leukocyte Esterase Negative RPR Titer 10/04/17 07:50 WBC RBC Hgb Hct MCV MCH MCHC RDW Plt Count MPV Sodium Potassium Chloride Carbon Dioxide Anion Gap BUN Creatinine Creat Clearance w eGFR Random Glucose Calcium Total Bilirubin AST ALT Alkaline Phosphatase Total Protein Albumin Urine Color Urine Appearance Urine pH Ur Specific [place] Urine Protein Urine Glucose (UA) Urine Ketones Urine Blood Urine Nitrite Urine Bilirubin Urine Urobilinogen Ur Leukocyte Esterase RPR Titer Nonreactive aaox3 ambulating no acute distress Assessment: 10/05/17 12:38 withdrawal sx Plan: continue detox increase fluids
[2017-10-05] MEDS: hydrOXYzine PAMOATE 50 MG CAPSULE (FP) PO PRN (22:46)
[2017-10-05] MEDS: THIAMINE HCL 100 MG TABLET (FP) PO SCH (22:46)
[2017-10-05] MEDS: MELATONIN 5 MG TABLETS PO PRN (22:46)
[2017-10-06] MEDS ORDERED: METHADONE HCL 5 MG TABLET (FOR DETOX USE ONLY) PO ONE (10:00)
[2017-10-06] MEDS: diazePAM 5 MG TABLET PO PRN ×2 (11:04→15:15)
[2017-10-06] MEDS: BACITRACIN 0.9 GM PACKET TP SCH ×2 (11:05→22:42)
[2017-10-06] MEDS: NICOTINE 21 MG/24 HOURS TOPICAL PATCH TD SCH (11:06)
[2017-10-06] MEDS: PRENATAL VITAMINS W/ FOLIC ACID TABLET (FP) PO SCH (11:29)
--- NOTE | 2017-10-06 12:08 | PN ---
BHS Progress Note (SOAP) Subjective: joint pain body ache sweat tremor trouble sleep at night anxiety restlessness Objective: 10/06/17 12:07 Vital Signs Temperature 97.2 F L 10/06/17 09:49 Pulse Rate 65 10/06/17 09:49 Respiratory Rate 16 10/06/17 09:49 Blood Pressure 130/81 10/06/17 09:49 O2 Sat by Pulse Oximetry (%) Laboratory Last Values WBC 5.6 K/mm3 (4.0-10.0) 10/04/17 07:50 RBC 4.81 M/mm3 (4.00-5.60) 10/04/17 07:50 Hgb 13.3 GM/dL (11.7-16.9) 10/04/17 07:50 Hct 39.9 % (35.4-49) 10/04/17 07:50 MCV 82.9 fl (80-96) 10/04/17 07:50 MCH 27.7 pg (25.7-33.7) 10/04/17 07:50 MCHC 33.4 g/dl (32.0-35.9) 10/04/17 07:50 RDW 13.6 % (11.9-15.9) 10/04/17 07:50 Plt Count 127 K/MM3 (134-434) L 10/04/17 07:50 MPV 9.6 fl (7.5-11.1) 10/04/17 07:50 Sodium 141 mmol/L (136-145) 10/04/17 07:50 Potassium 4.1 mmol/L (3.5-5.1) 10/04/17 07:50 Chloride 109 mmol/L (98-107) H 10/04/17 07:50 Carbon Dioxide 24 mmol/L (21-32) D 10/04/17 07:50 Anion Gap 8 (8-16) 10/04/17 07:50 BUN 11 mg/dL (7-18) 10/04/17 07:50 Creatinine 0.7 mg/dL (0.7-1.3) 10/04/17 07:50 Creat Clearance w eGFR > 60 (>60) 10/04/17 07:50 Random Glucose 97 mg/dL (74-106) 10/04/17 07:50 Calcium 8.2 mg/dL (8.5-10.1) L 10/04/17 07:50 Total Bilirubin 0.6 mg/dL (0.2-1.0) D 10/04/17 07:50 AST 36 U/L (15-37) D 10/04/17 07:50 ALT 41 U/L (12-78) D 10/04/17 07:50 Alkaline Phosphatase 54 U/L (45-117) 10/04/17 07:50 Total Protein 7.4 g/dl (6.4-8.2) 10/04/17 07:50 Albumin 3.1 g/dl (3.4-5.0) L 10/04/17 07:50 Urine Color Yellow 10/03/17 22:25 Urine Appearance Turbid 10/03/17 22:25 Urine pH 5.0 (5.0-8.0) D 10/03/17 22:25 Ur Specific [place] 1.025 (1.001-1.035) 10/03/17 22:25 Urine Protein Negative (NEGATIVE) 10/03/17 22:25 Urine Glucose (UA) Negative (NEGATIVE) 10/03/17 22:25 Urine Ketones Negative (NEGATIVE) 10/03/17 22:25 Urine Blood Negative (NEGATIVE) 10/03/17 22:25 Urine Nitrite Negative (NEGATIVE) 10/03/17 22:25 Urine Bilirubin Negative (<2.0 mg/dL) 10/03/17 22:25 Urine Urobilinogen 2.0 mg/dL (0.2-1.0) 10/03/17 22:25 Ur Leukocyte Esterase Negative (NEGATIVE) 10/03/17 22:25 RPR Titer Nonreactive (NONREACTIVE) 10/04/17 07:50 lab noted Assessment: 10/06/17 12:08 withdrawal sx Plan: continue detox
[2017-10-06] MEDS: CLOTRIMAZOLE 1% CREAM 15 GM TUBE TP SCH ×2 (12:17→22:42)
[2017-10-06] MEDS: hydrOXYzine PAMOATE 50 MG CAPSULE (FP) PO PRN ×2 (17:18→22:41)
[2017-10-06] MEDS: THIAMINE HCL 100 MG TABLET (FP) PO SCH (22:41)
[2017-10-06] MEDS: MELATONIN 5 MG TABLETS PO PRN (22:42)
--- NOTE | 2017-10-07 00:52 | EKG ---
Test Reason : Blood Pressure : / mmHG Vent. Rate : 071 BPM Atrial Rate : 071 BPM P-R Int : 142 ms QRS Dur : 090 ms QT Int : 414 ms P-R-T Axes : 079 074 048 degrees QTc Int : 449 ms NORMAL SINUS RHYTHM NORMAL ECG WHEN COMPARED WITH ECG OF 22-DEC-2016 17:48, NO SIGNIFICANT CHANGE WAS FOUND Confirmed by PA GOMEZ MD ([id number]) on 10/07/2017 12:51:46 AM Referred By: Confirmed By:PA GOMEZ MD
[2017-10-07 09:18] VITALS: BP 103/70; PULSE 64; TEMP 97
[2017-10-07] MEDS ORDERED: METHADONE HCL 10 MG TABLET (FOR DETOX USE ONLY) PO ONE (10:00)
--- NOTE | 2017-10-07 10:44 | PN ---
BHS Progress Note (SOAP) Subjective: feeling better less tremor no sweat social with peers in day room Objective: 10/07/17 10:42 Vital Signs Temperature 97.0 F L 10/07/17 09:18 Pulse Rate 64 10/07/17 09:18 Respiratory Rate 16 10/07/17 09:18 Blood Pressure 103/70 10/07/17 09:18 O2 Sat by Pulse Oximetry (%) Laboratory Last Values WBC 5.6 K/mm3 (4.0-10.0) 10/04/17 07:50 RBC 4.81 M/mm3 (4.00-5.60) 10/04/17 07:50 Hgb 13.3 GM/dL (11.7-16.9) 10/04/17 07:50 Hct 39.9 % (35.4-49) 10/04/17 07:50 MCV 82.9 fl (80-96) 10/04/17 07:50 MCH 27.7 pg (25.7-33.7) 10/04/17 07:50 MCHC 33.4 g/dl (32.0-35.9) 10/04/17 07:50 RDW 13.6 % (11.9-15.9) 10/04/17 07:50 Plt Count 127 K/MM3 (134-434) L 10/04/17 07:50 MPV 9.6 fl (7.5-11.1) 10/04/17 07:50 Sodium 141 mmol/L (136-145) 10/04/17 07:50 Potassium 4.1 mmol/L (3.5-5.1) 10/04/17 07:50 Chloride 109 mmol/L (98-107) H 10/04/17 07:50 Carbon Dioxide 24 mmol/L (21-32) D 10/04/17 07:50 Anion Gap 8 (8-16) 10/04/17 07:50 BUN 11 mg/dL (7-18) 10/04/17 07:50 Creatinine 0.7 mg/dL (0.7-1.3) 10/04/17 07:50 Creat Clearance w eGFR > 60 (>60) 10/04/17 07:50 Random Glucose 97 mg/dL (74-106) 10/04/17 07:50 Calcium 8.2 mg/dL (8.5-10.1) L 10/04/17 07:50 Total Bilirubin 0.6 mg/dL (0.2-1.0) D 10/04/17 07:50 AST 36 U/L (15-37) D 10/04/17 07:50 ALT 41 U/L (12-78) D 10/04/17 07:50 Alkaline Phosphatase 54 U/L (45-117) 10/04/17 07:50 Total Protein 7.4 g/dl (6.4-8.2) 10/04/17 07:50 Albumin 3.1 g/dl (3.4-5.0) L 10/04/17 07:50 Urine Color Yellow 10/03/17 22:25 Urine Appearance Turbid 10/03/17 22:25 Urine pH 5.0 (5.0-8.0) D 10/03/17 22:25 Ur Specific [place] 1.025 (1.001-1.035) 10/03/17 22:25 Urine Protein Negative (NEGATIVE) 10/03/17 22:25 Urine Glucose (UA) Negative (NEGATIVE) 10/03/17 22:25 Urine Ketones Negative (NEGATIVE) 10/03/17 22:25 Urine Blood Negative (NEGATIVE) 10/03/17 22:25 Urine Nitrite Negative (NEGATIVE) 10/03/17 22:25 Urine Bilirubin Negative (<2.0 mg/dL) 10/03/17 22:25 Urine Urobilinogen 2.0 mg/dL (0.2-1.0) 10/03/17 22:25 Ur Leukocyte Esterase Negative (NEGATIVE) 10/03/17 22:25 RPR Titer Nonreactive (NONREACTIVE) 10/04/17 07:50 lab noted Assessment: 10/07/17 10:43 mild withdrawal sx Plan: medically supervised detox
[2017-10-07] MEDS: PRENATAL VITAMINS W/ FOLIC ACID TABLET (FP) PO SCH (10:59)
[2017-10-07] MEDS: CLOTRIMAZOLE 1% CREAM 15 GM TUBE TP SCH (10:59)
[2017-10-07] MEDS: BACITRACIN 0.9 GM PACKET TP SCH (10:59)
[2017-10-07] MEDS: NICOTINE 21 MG/24 HOURS TOPICAL PATCH TD SCH (11:00)
--- NOTE | 2017-10-07 12:58 | DS ---
[facility] Detox Discharge Summary Admission Date: 10/03/17 Discharge Date: 10/07/17 - History Present History: Opioid Dependence Additional Comments: 52 years old male admitted on 10/03/17 for opiate withdrawal sx alert oriented x 3 no acute distress wants to leave the detox facility today and return to [facility] for recovery in [facility] teaching on consequences of opiate misuse and the benefit of opiate free through medication assisted program and psychotherapy - Physical Exam Results Vital Signs: Vital Signs Temperature 97.0 F L 10/07/17 09:18 Pulse Rate 64 10/07/17 09:18 Respiratory Rate 16 10/07/17 09:18 Blood Pressure 103/70 10/07/17 09:18 O2 Sat by Pulse Oximetry (%) Pertinent Admission Physical Exam Findings: withdrawal sx Vital Signs Temperature 97.0 F L 10/07/17 09:18 Pulse Rate 64 10/07/17 09:18 Respiratory Rate 16 10/07/17 09:18 Blood Pressure 103/70 10/07/17 09:18 O2 Sat by Pulse Oximetry (%) Laboratory Last Values WBC 5.6 K/mm3 (4.0-10.0) 10/04/17 07:50 RBC 4.81 M/mm3 (4.00-5.60) 10/04/17 07:50 Hgb 13.3 GM/dL (11.7-16.9) 10/04/17 07:50 Hct 39.9 % (35.4-49) 10/04/17 07:50 MCV 82.9 fl (80-96) 10/04/17 07:50 MCH 27.7 pg (25.7-33.7) 10/04/17 07:50 MCHC 33.4 g/dl (32.0-35.9) 10/04/17 07:50 RDW 13.6 % (11.9-15.9) 10/04/17 07:50 Plt Count 127 K/MM3 (134-434) L 10/04/17 07:50 MPV 9.6 fl (7.5-11.1) 10/04/17 07:50 Sodium 141 mmol/L (136-145) 10/04/17 07:50 Potassium 4.1 mmol/L (3.5-5.1) 10/04/17 07:50 Chloride 109 mmol/L (98-107) H 10/04/17 07:50 Carbon Dioxide 24 mmol/L (21-32) D 10/04/17 07:50 Anion Gap 8 (8-16) 10/04/17 07:50 BUN 11 mg/dL (7-18) 10/04/17 07:50 Creatinine 0.7 mg/dL (0.7-1.3) 10/04/17 07:50 Creat Clearance w eGFR > 60 (>60) 10/04/17 07:50 Random Glucose 97 mg/dL (74-106) 10/04/17 07:50 Calcium 8.2 mg/dL (8.5-10.1) L 10/04/17 07:50 Total Bilirubin 0.6 mg/dL (0.2-1.0) D 10/04/17 07:50 AST 36 U/L (15-37) D 10/04/17 07:50 ALT 41 U/L (12-78) D 10/04/17 07:50 Alkaline Phosphatase 54 U/L (45-117) 10/04/17 07:50 Total Protein 7.4 g/dl (6.4-8.2) 10/04/17 07:50 Albumin 3.1 g/dl (3.4-5.0) L 10/04/17 07:50 Urine Color Yellow 10/03/17 22:25 Urine Appearance Turbid 10/03/17 22:25 Urine pH 5.0 (5.0-8.0) D 10/03/17 22:25 Ur Specific [place] 1.025 (1.001-1.035) 10/03/17 22:25 Urine Protein Negative (NEGATIVE) 10/03/17 22:25 Urine Glucose (UA) Negative (NEGATIVE) 10/03/17 22:25 Urine Ketones Negative (NEGATIVE) 10/03/17 22:25 Urine Blood Negative (NEGATIVE) 10/03/17 22:25 Urine Nitrite Negative (NEGATIVE) 10/03/17 22:25 Urine Bilirubin Negative (<2.0 mg/dL) 10/03/17 22:25 Urine Urobilinogen 2.0 mg/dL (0.2-1.0) 10/03/17 22:25 Ur Leukocyte Esterase Negative (NEGATIVE) 10/03/17 22:25 RPR Titer Nonreactive (NONREACTIVE) 10/04/17 07:50 lab noted - Treatment Hospital Course: Detox Protocol Followed, Detoxed Safely, Responded well, Discharged Condition Good, Rehab Referral Accepted Patient has Accepted a Rehab Referral to: [facility] - Medication Discharge Medications: Ambulatory Orders Albuterol Sulfate Inhaler - [Ventolin HFA Inhaler -] 1 - 2 inh IH Q4H #1 inhaler 10/07/17 Amlodipine Besylate [Norvasc -] 10 mg PO DAILY #30 tablet 10/07/17 - Diagnosis (1) Uncomplicated opioid dependence Current Visit: Yes Status: Acute (2) Asthma Current Visit: Yes Status: Chronic Qualifiers: Asthma severity: mild Asthma persistence: intermittent Asthma complication type: uncomplicated Qualified Code(s): J45.20 - Mild intermittent asthma, uncomplicated (3) Hypertension Current Visit: Yes Status: Chronic Qualifiers: Hypertension type: essential hypertension Qualified Code(s): I10 - Essential (primary) hypertension - AMA Did Patient Leave Against Medical Advice: No
[2017-10-08] MEDS ORDERED: METHADONE HCL 5 MG TABLET (FOR DETOX USE ONLY) PO ONE (06:00)
== END 2017-10-07 01:08 | disposition home or self-care (01) | DRG 773 ==
LOC: YASAS 11:59 → Y6N 19:22
PROVIDERS: ADMIT Surgery; ATTEND Surgery
PROC: HZ2ZZZZ Detoxification Services for Substance Abuse Treatment (ICD-10-PCS; principal; 2017-10-03)
DX: F11.20 Opioid dependence, uncomplicated (principal); F14.20 Cocaine dependence, uncomplicated; F12.20 Cannabis dependence, uncomplicated; I10 Essential (primary) hypertension; J45.20 Mild intermittent asthma, uncomplicated; R01.1 Cardiac murmur, unspecified; B35.3 Tinea pedis; B18.2 Chronic viral hepatitis C; Z59.0 Homelessness
CPT/HCPCS: 36415; 80053; 81003; 85027; 86593; 93005; 93010

== ENCOUNTER 2017-12-02 17:05 | Inpatient (IN) | payer OTHER ==
[2017-12-02 19:25] VITALS: BMI 22.2
--- NOTE | 2017-12-02 20:40 | HP ---
COWS - Scale Resting Pulse: 0= [place] 80 or Below Sweatin= Chills/Flushing Restless Observation: 1= Difficult to Sit Still Pupil Size: 1= Pupils >than Normal Bone or Joint Aches: 1= Mild Discomfort Runny Nose/ Eye Tearin= Runny Nose/Eyes GI Upset > 30mins: 3= Vomiting/Diarrhea Tremor Observation: 1= Tremor [place], Not Seen Yawning Observation: 2= >3x During Session Anxiety or Irritability: 2=Irritable/Anxious Goose Flesh Skin: 0=Smooth Skin COWS Score: 14 Admission [facility] Chief Complaint: opioid withdrawal symptoms Allergies/Adverse Reactions: Allergies Allergy/AdvReac Type Severity Reaction Status Date / Time No Known Allergies Allergy Verified 12/02/17 21:22 History of Present Illness: 52 yo male with hx of IV heroin, nicotine and cocaine dependence is here seeking detox. PMHX Hep C, asthma , HTN. Denies psychiatric problems. Denies suicidal / homicidal ideation or hx of suicide attempts. Longest period of sobriety 10 years. Last detox [facility] 10/03/17 -10/07/17. Exam Limitations: No Limitations - Ebola screening Have you been sick,other than usual withdrawal symptoms: No - Review of Systems Constitutional: Chills, Loss of Appetite, Unintentional Wgt. Loss (40 lbs in past 6 months) EENT: reports: Nose Congestion, Other (runny nose) Respiratory: reports: No Symptoms reported Cardiac: reports: No Symptoms Reported GI: reports: Diarrhea, Nausea, Poor Fluid Intake, Vomiting, Abdominal cramping : reports: No Symptoms Reported Musculoskeletal: reports: No Symptoms Reported, Back Pain, Joint Pain Integumentary: reports: No Symptoms Reported Neuro: reports: No Symptoms reported Endocrine: reports: Increased Thirst Hematology: reports: No Symptoms Reported Psychiatric: reports: Orientated x3, Anxious Other Systems: Reviewed and Negative Patient History - Patient Medical History Hx Anemia: No Hx Asthma: Yes (on albuterol inhlaer) Hx Chronic Obstructive Pulmonary Disease (COPD): No Hx Cancer: No Hx Cardiac Disorders: No Hx Congestive Heart Failure: No Hx Hypertension: Yes (Was on amlodipine 10 mgs.Non -adherence tiwth medications) Hx Hypercholesterolemia: No Hx Pacemaker: No HX Cerebrovascular Accident: No Hx Seizures: No Hx Dementia: No Hx Diabetes: No Hx Gastrointestinal Disorders: No Hx Liver Disease: Yes (Hep C ) Hx Genitourinary Disorders: No Hx Sexually Transmitted Disorders: No Hx Renal Disease (ESRD): No Hx Thyroid Disease: No Hx Human Immunodeficiency Virus (HIV): No (last tested three months ago , results negative ) Hx Hepatitis C: Yes (being monitored by pmd. No Tx.) Hx Depression: No Hx Suicide Attempt: No Hx Bipolar Disorder: No Hx Schizophrenia: No - Patient Surgical History Past Surgical History: No Hx Neurologic Surgery: No Hx Cataract Extraction: No Hx Cardiac Surgery: No Hx Lung Surgery: No Hx Breast Surgery: No Hx Breast Biopsy: No Hx Abdominal Surgery: Yes (LT INGUINAL HERNIA-2015) Hx Appendectomy: No Hx Cholecystectomy: No Hx Genitourinary Surgery: No Hx Orthopedic Surgery: No Anesthesia Reaction: No - PPD History Documented Results: Negative w/proof Date: 12/24/16 PPD to be Administered?: Yes - Smoking Cessation Smoking history: Current every day smoker Have you smoked in the past 12 months: Yes Aproximately how many cigarettes per day: 10 Hx Chewing Tobacco Use: No Initiated information on smoking cessation: Yes 'Breaking Loose' booklet given: 12/02/17 - Substance & Tx. History Hx Alcohol Use: Yes Substance Use Type: Cocaine, Heroin Hx Substance Use Treatment: Yes (Last detox [facility] 10/03/17 -10/07/17. ) - Substances Abused Heroin Route: Injection Frequency: Daily Amount used: 10 bags Age of first use: 25 Date of Last Use: 12/02/17 crack Route: Smoking Frequency: Daily Amount used: $40 Age of first use: 20 Date of Last Use: 12/01/17 Family Disease History - Family Disease History Family Disease History: Diabetes: Grandparent (GM - r/t DM), CA: Sister (Pancreatic) Admission Physical Exam S - Vital Signs Vital Signs: Vital Signs - 24 hr 12/02/17 19:23 Temperature 98.5 F Pulse Rate 64 Respiratory 18 Rate Blood Pressure 130/85 - Physical General Appearance: Yes: Disheveled, Mild Distress, Thin, Sweating, Anxious HEENTM: Yes: EOMI, Hearing grossly Normal, Normal ENT Inspection, Normocephalic , Normal Voice, NALINI, Pharynx Normal, Tm's normal Respiratory: Yes: Chest Non-Tender, Lungs Clear, Normal Breath Sounds, No Respiratory Distress, No Accessory Muscle Use Neck: Yes: No masses,lesions,Nodules, Trachea in good position Breast: Yes: Breast Exam Deferred Cardiology: Yes: Regular Rhythm, Regular Rate Abdominal: Yes: Normal Bowel Sounds, Non Tender, Flat, Soft Genitourinary: Yes: Within Normal Limits Back: Yes: Normal Inspection Musculoskeletal: Yes: full range of Motion, Gait Steady, Pelvis Stable Extremities: Yes: Normal Capillary Refill, Normal Inspection, Normal Range of Motion, Non-Tender Neurological: Yes: family service worker II-XII NML intact, Fully Oriented, Alert, Motor Strength 5/5, Depressed Affect Integumentary: Yes: Normal Color, Warm, Diaphoresis, Track Rapp (bilateral forearms no infection) Lymphatic: Yes: Within Normal Limits - Diagnostic (1) Cocaine dependence, uncomplicated Current Visit: Yes Status: Acute (2) Nicotine dependence Current Visit: Yes Status: Acute Qualifiers: Nicotine product type: cigarettes Substance use status: in withdrawal Qualified Code(s): F17.213 - Nicotine dependence, cigarettes, with withdrawal (3) Opioid dependence with withdrawal Current Visit: Yes Status: Acute (4) Asthma Current Visit: Yes Status: Chronic Qualifiers: Asthma severity: mild Asthma persistence: intermittent Asthma complication type: uncomplicated Qualified Code(s): J45.20 - Mild intermittent asthma, uncomplicated (5) Hepatitis C Current Visit: Yes Status: Chronic Qualifiers: Viral hepatitis chronicity: chronic Hepatic coma status: without hepatic coma Qualified Code(s): B18.2 - Chronic viral hepatitis C (6) Hypertension Current Visit: Yes Status: Chronic Qualifiers: Hypertension type: essential hypertension Qualified Code(s): I10 - Essential (primary) hypertension (7) Weight loss Current Visit: Yes Status: Acute Cleared for Admission [facility] - Detox or Rehab [facility] Level of Care: Medically Managed Detox Regimen/Protocol: Methadone [facility] Breath Alcohol Content Breath Alcohol Content: 0 Urine Drug Screen - Results Drug Screen Negative: No Urine Drug Screen Results: ANN-Cocaine, OPI-Opiates
[2017-12-02] MEDS ORDERED: MAGNESIUM HYDROX 2400MG/30ML ORAL SUSPENSION 30 ML CUP PO PRN (20:43)
[2017-12-02] MEDS ORDERED: ACETAMINOPHEN 325 MG TABLET (FP) PO PRN (20:43)
[2017-12-02] MEDS ORDERED: LOPERAMIDE HCL 2 MG CAPSULE PO PRN (20:43)
[2017-12-02] MEDS ORDERED: IBUPROFEN 400 MG TABLET (FP) PO PRN (20:43)
[2017-12-02] MEDS ORDERED: MAGNESIUM CITRATE 300 ML BOTTLE PO PRN (20:43)
[2017-12-02] MEDS ORDERED: NICOTINE POLACRILEX 2 MG GUM BUC PRN (20:43)
[2017-12-02] MEDS ORDERED: guaiFENesin/D-METHORPHAN HB 10 ML UNIT-DOSE CUPS PO PRN (20:43)
[2017-12-02] MEDS ORDERED: P-EPHED 60MG/TRIPROLIDI 2.5MG TABLET PO PRN (20:43)
[2017-12-02] MEDS ORDERED: MENTHOL/PHENOL 1 EACH UD MM PRN (20:43)
[2017-12-02] MEDS ORDERED: METHADONE HCL 10 MG TABLET (FOR DETOX USE ONLY) PO ONE ×2 (20:43→23:00)
[2017-12-02] MEDS ORDERED: MAG HYDROX/AL HYDROX/SIMETH 30 ML UNIT-DOSE CUP PO PRN (20:43)
[2017-12-02] MEDS ORDERED: ALBUTEROL SO4 0.083% IH SOL 2.5 MG/3 ML VIAL.NEB. NEB PRN (20:49)
[2017-12-02] MEDS: THIAMINE HCL 100 MG TABLET (FP) PO SCH (23:00)
[2017-12-02] MEDS: diazePAM 5 MG TABLET PO PRN (23:00)
[2017-12-02] MEDS: ALBUTEROL SO4 8 GM HFA INHALER IH SCH (23:01)
[2017-12-03] MEDS: ALBUTEROL SO4 8 GM HFA INHALER IH SCH ×2 (06:35→10:55)
[2017-12-03 09:46] LABS: HEMOGLOBIN 12.7 GM/dL (11.7-16.9); MCH 27.3 pg (25.7-33.7); MCHC 33.5 g/dl (32.0-35.9); MEAN CELL VOLUME 81.4 fl (80-96); MEAN PLT VOLUME 8.7 fl (7.5-11.1); PLATELET COUNT 194 K/MM3 (134-434); RBC 4.67 M/mm3 (4.00-5.60); RDW 14.7 % (11.9-15.9); WHITE BLOOD COUNT 4.9 K/mm3 (4.0-10.0)
[2017-12-03 09:54] LABS: ALBUMIN 2.8 g/dl (3.4-5.0); ANION GAP 6 (8-16); BLOOD UREA NITROGEN 14 mg/dL (7-18); CALCIUM 8.2 mg/dL (8.5-10.1); CHLORIDE 106 mmol/L (98-107); CO2 30 mmol/L (21-32); POTASSIUM 3.9 mmol/L (3.5-5.1); SODIUM 142 mmol/L (136-145)
[2017-12-03] MEDS ORDERED: METHADONE HCL 10 MG TABLET (FOR DETOX USE ONLY) PO ONE (10:00)
[2017-12-03 10:03] LABS: ALK PHOS 53 U/L (45-117); BILIRUBIN,TOTAL 0.5 mg/dL (0.2-1.0); CREATININE 0.5 mg/dL (0.7-1.3); GLUCOSE,RANDOM 88 mg/dL (74-106); SGOT/AST 25 U/L (15-37); SGPT/ALT 26 U/L (12-78); TOT PROT 6.7 g/dl (6.4-8.2)
[2017-12-03] MEDS: NICOTINE 14 MG/24 HOURS TOPICAL PATCH TD SCH (10:27)
[2017-12-03] MEDS: diazePAM 5 MG TABLET PO PRN ×2 (10:27→22:14)
[2017-12-03] MEDS: PRENATAL VITAMINS W/ FOLIC ACID TABLET (FP) PO SCH (10:27)
[2017-12-03] MEDS ORDERED: ALBUTEROL SO4 8 GM HFA INHALER IH PRN (13:46)
--- NOTE | 2017-12-03 13:50 | PN ---
BHS COWS - Scale Resting Pulse: 0= [place] 80 or Below Sweatin= Chills/Flushing Restless Observation: 1= Difficult to Sit Still Pupil Size: 0= Normal to Room Light Bone or Joint Aches: 0= None Runny Nose/ Eye Tearin= None GI Upset > 30mins: 0= None Tremor Observation of Outstretched Hands: 2= Slight Tremor Visible Yawning Observation: 2= >3x During Session Anxiety or Irritability: 2=Irritable/Anxious Goose Flesh Skin: 3=Piloerection COWS Score: 11 BHS Progress Note (SOAP) Subjective: Sweating, Anxious, Fatigue, Tremors. Objective: PATIENT A & O X 3. NO ACUTE DISTRESS. 12/03/17 13:48 Vital Signs Temperature 97.5 F L 12/03/17 10:16 Pulse Rate 80 12/03/17 10:16 Respiratory Rate 20 12/03/17 10:16 Blood Pressure 120/80 12/03/17 10:16 O2 Sat by Pulse Oximetry (%) Laboratory Tests 12/03/17 12/03/17 12/03/17 07:00 07:00 07:00 WBC 4.9 RBC 4.67 Hgb 12.7 Hct 38.0 MCV 81.4 MCH 27.3 MCHC 33.5 RDW 14.7 Plt Count 194 D MPV 8.7 Sodium 142 Potassium 3.9 Chloride 106 Carbon Dioxide 30 D Anion Gap 6 L BUN 14 Creatinine 0.5 L Creat Clearance w eGFR > 60 Random Glucose 88 Calcium 8.2 L Total Bilirubin 0.5 AST 25 D ALT 26 D Alkaline Phosphatase 53 Total Protein 6.7 Albumin 2.8 L RPR Titer Nonreactive HIV 1&2 Antibody Screen HIV P24 Antigen 12/03/17 07:00 WBC RBC Hgb Hct MCV MCH MCHC RDW Plt Count MPV Sodium Potassium Chloride Carbon Dioxide Anion Gap BUN Creatinine Creat Clearance w eGFR Random Glucose Calcium Total Bilirubin AST ALT Alkaline Phosphatase Total Protein Albumin RPR Titer HIV 1&2 Antibody Screen Negative HIV P24 Antigen Negative LABS NOTED. UA RESULTS PENDING. 12/03/17 13:50 Assessment: 12/03/17 13:49 WITHDRAWAL SYMPTOMS. Plan: CONTINUE DETOX.
--- NOTE | 2017-12-03 14:28 | CONSULT ---
[facility] Psychiatric Consult - Data Date of interview: 12/03/17 Admission source: [facility] Identifying data: Readmission to [facility] for this 52 y/o male seeking detox treatment on for heroin and cocaine dependence.Patient is ,a father of one,homeless,unemployed and supported on Public Assistance. Substance Abuse History: Confirmed by patient in my interview.Smoking history: Current every day smoker. Have you smoked in the past 12 months: Yes. Aproximately how many cigarettes per day: 10. Hx Chewing Tobacco Use: No. Initiated information on smoking cessation: Yes. 'Breaking Loose' booklet given : 12/02/17. - Substance & Tx. History. Hx Alcohol Use: Yes. Substance Use Type: Cocaine, Heroin. Hx Substance Use Treatment: Yes (Last detox [facility] -10/07/17. ). - Substances Abused. Heroin. Route: Injection. Frequency : Daily. Amount used: 10 bags. Age of first use: 25. Date of Last Use: . crack. Route: Smoking. Frequency: Daily. Amount used: $40. Age of first use: 20. Date of Last Use: 12/01/17 Medical History: Hepatitis C,hypertension and bronchial asthma.History of left inguinal herniorraphy. Psychiatric History: Patient denies. Physical/Sexual Abuse/Trauma History: Patient denies. Additional Comment: Urine Drug Screen Results: ANN-Cocaine, OPI-Opiates.Noted. Mental Status Exam - Mental Status Exam Alert and Oriented to: Time, Place, Person Cognitive Function: Good Patient Appearance: Well Groomed Mood: Hopeful, Euthymic Affect: Appropriate, Normal Range Patient Behavior: Fatigued, Cooperative Speech Pattern: Clear, Appropriate Voice Loudness: Normal Thought Process: Goal Oriented Thought Disorder: Not Present Hallucinations: Denies Suicidal Ideation: Denies Homicidal Ideation: Denies Insight/Judgement: Poor Sleep: Well Appetite: Good Muscle strength/Tone: Normal Psychiatric Findings - Problem List ([place] 1, 2,3) (1) Opioid dependence with withdrawal Current Visit: Yes Status: Acute (2) Cocaine dependence, uncomplicated Current Visit: Yes Status: Acute (3) Nicotine dependence Current Visit: Yes Status: Acute Qualifiers: Nicotine product type: cigarettes Substance use status: in withdrawal Qualified Code(s): F17.213 - Nicotine dependence, cigarettes, with withdrawal - Initial Treatment Plan Initial Treatment Plan: Psychoeducation.Detoxification.Sleep hygiene.Observation.
[2017-12-03] MEDS: THIAMINE HCL 100 MG TABLET (FP) PO SCH (22:14)
[2017-12-04] MEDS ORDERED: METHADONE HCL 5 MG TABLET (FOR DETOX USE ONLY) PO ONE (10:00)
[2017-12-04] MEDS: diazePAM 5 MG TABLET PO PRN ×2 (10:09→22:18)
[2017-12-04] MEDS: PRENATAL VITAMINS W/ FOLIC ACID TABLET (FP) PO SCH (10:10)
[2017-12-04] MEDS: NICOTINE 14 MG/24 HOURS TOPICAL PATCH TD SCH (10:11)
--- NOTE | 2017-12-04 14:27 | EKG ---
Test Reason : Blood Pressure : / mmHG Vent. Rate : 074 BPM Atrial Rate : 074 BPM P-R Int : 126 ms QRS Dur : 102 ms QT Int : 406 ms P-R-T Axes : 078 076 053 degrees QTc Int : 450 ms NORMAL SINUS RHYTHM MINIMAL VOLTAGE CRITERIA FOR LVH, MAY BE NORMAL VARIANT BORDERLINE ECG WHEN COMPARED WITH ECG OF 03-OCT-2017 21:07, NO SIGNIFICANT CHANGE WAS FOUND Confirmed by BRAD SCHWAB, NANCY ([id number]) on 12/04/2017 2:27:35 PM Referred By: Confirmed By:NANCY SALINAS MD
--- NOTE | 2017-12-04 14:50 | PN ---
BHS COWS - Scale Resting Pulse: 0= AK 80 or Below Sweatin= Chills/Flushing Restless Observation: 0= Sits Still Pupil Size: 0= Normal to Room Light Bone or Joint Aches: 2= Severe Diffuse Aches Runny Nose/ Eye Tearin= None GI Upset > 30mins: 2= Nausea/Diarrhea Tremor Observation of Outstretched Hands: 2= Slight Tremor Visible Yawning Observation: 2= >3x During Session Anxiety or Irritability: 2=Irritable/Anxious Goose Flesh Skin: 0=Smooth Skin COWS Score: 11 BHS Progress Note (SOAP) Subjective: Body Aches, Tremors, Fatigue, Sweating, Interrupted Sleep, Diarrhea. Objective: PATIENT A & O X 2 (UNCERTAIN ABOUT CURRENT DAY / DATE). PATIENT OBSERVED AMBULATING ON UNIT. NO ACUTE DISTRESS. 12/04/17 14:48 Vital Signs Temperature 97.9 F 12/04/17 14:28 Pulse Rate 74 12/04/17 14:28 Respiratory Rate 18 12/04/17 14:28 Blood Pressure 111/64 12/04/17 14:28 O2 Sat by Pulse Oximetry (%) Laboratory Tests 12/03/17 12/03/17 12/03/17 07:00 07:00 07:00 WBC 4.9 RBC 4.67 Hgb 12.7 Hct 38.0 MCV 81.4 MCH 27.3 MCHC 33.5 RDW 14.7 Plt Count 194 D MPV 8.7 Sodium 142 Potassium 3.9 Chloride 106 Carbon Dioxide 30 D Anion Gap 6 L BUN 14 Creatinine 0.5 L Creat Clearance w eGFR > 60 Random Glucose 88 Calcium 8.2 L Total Bilirubin 0.5 AST 25 D ALT 26 D Alkaline Phosphatase 53 Total Protein 6.7 Albumin 2.8 L RPR Titer Nonreactive HIV 1&2 Antibody Screen HIV P24 Antigen 12/03/17 07:00 WBC RBC Hgb Hct MCV MCH MCHC RDW Plt Count MPV Sodium Potassium Chloride Carbon Dioxide Anion Gap BUN Creatinine Creat Clearance w eGFR Random Glucose Calcium Total Bilirubin AST ALT Alkaline Phosphatase Total Protein Albumin RPR Titer HIV 1&2 Antibody Screen Negative HIV P24 Antigen Negative LABS NOTED. UA RESULTS PENDING. 12/04/17 14:50 Assessment: 12/04/17 14:48 WITHDRAWAL SYMPTOMS. Plan: CONTINUE DETOX. INCREASE DAILY PO FLUID INTAKE. PRN IMMODIUM FOR DIARRHEA.
[2017-12-04] MEDS: THIAMINE HCL 100 MG TABLET (FP) PO SCH (22:18)
[2017-12-04] MEDS: MELATONIN 5 MG TABLETS PO PRN (22:18)
[2017-12-05] MEDS ORDERED: METHADONE HCL 5 MG TABLET (FOR DETOX USE ONLY) PO ONE (10:00)
[2017-12-05] MEDS: diazePAM 5 MG TABLET PO PRN ×2 (10:17→19:37)
[2017-12-05] MEDS: PRENATAL VITAMINS W/ FOLIC ACID TABLET (FP) PO SCH (10:17)
[2017-12-05] MEDS: NICOTINE 14 MG/24 HOURS TOPICAL PATCH TD SCH (10:18)
--- NOTE | 2017-12-05 16:26 | PN ---
B[facility] Progress Note (SOAP) Subjective: Stomach Cramping, Sweating, Fatigue, H/A, Body Aches, Diarrhea. Objective: PATIENT A & O X 3. NO ACUTE DISTRESS. 12/05/17 16:24 Vital Signs Temperature 97.0 F L 12/05/17 14:26 Pulse Rate 80 12/05/17 14:26 Respiratory Rate 20 12/05/17 14:26 Blood Pressure 126/80 12/05/17 14:26 O2 Sat by Pulse Oximetry (%) Laboratory Tests 12/03/17 12/03/17 12/03/17 07:00 07:00 07:00 WBC 4.9 RBC 4.67 Hgb 12.7 Hct 38.0 MCV 81.4 MCH 27.3 MCHC 33.5 RDW 14.7 Plt Count 194 D MPV 8.7 Sodium 142 Potassium 3.9 Chloride 106 Carbon Dioxide 30 D Anion Gap 6 L BUN 14 Creatinine 0.5 L Creat Clearance w eGFR > 60 Random Glucose 88 Calcium 8.2 L Total Bilirubin 0.5 AST 25 D ALT 26 D Alkaline Phosphatase 53 Total Protein 6.7 Albumin 2.8 L RPR Titer Nonreactive HIV 1&2 Antibody Screen HIV P24 Antigen 12/03/17 07:00 WBC RBC Hgb Hct MCV MCH MCHC RDW Plt Count MPV Sodium Potassium Chloride Carbon Dioxide Anion Gap BUN Creatinine Creat Clearance w eGFR Random Glucose Calcium Total Bilirubin AST ALT Alkaline Phosphatase Total Protein Albumin RPR Titer HIV 1&2 Antibody Screen Negative HIV P24 Antigen Negative LABS NOTED. UA RESULTS PENDING. 12/05/17 16:25 Assessment: 12/05/17 16:24 WITHDRAWAL SYMPTOMS. Plan: CONTINUE DETOX. INCREASE DAILY PO FLUID INTAKE. ENCOURAGE AMBULATION.
[2017-12-05] MEDS: CYCLOBENZAPRINE HCL 10 MG TABLET (FP) PO PRN (22:13)
[2017-12-05] MEDS: THIAMINE HCL 100 MG TABLET (FP) PO SCH (22:13)
[2017-12-06] MEDS ORDERED: METHADONE HCL 10 MG TABLET (FOR DETOX USE ONLY) PO ONE (10:00)
[2017-12-06] MEDS: PRENATAL VITAMINS W/ FOLIC ACID TABLET (FP) PO SCH (10:46)
[2017-12-06] MEDS: NICOTINE 14 MG/24 HOURS TOPICAL PATCH TD SCH (10:46)
--- NOTE | 2017-12-06 13:32 | PN ---
BHS Progress Note (SOAP) Subjective: Sweating, Fatigue, Body Aches. Objective: PATIENT A & O X 3, OBSERVED AMBULATING ON UNIT. NO ACUTE DISTRESS. 12/06/17 13:29 Vital Signs Temperature 96.9 F L 12/06/17 11:02 Pulse Rate 72 12/06/17 11:02 Respiratory Rate 18 12/06/17 11:02 Blood Pressure 118/90 12/06/17 11:02 O2 Sat by Pulse Oximetry (%) Laboratory Tests 12/03/17 12/03/17 12/03/17 07:00 07:00 07:00 WBC 4.9 RBC 4.67 Hgb 12.7 Hct 38.0 MCV 81.4 MCH 27.3 MCHC 33.5 RDW 14.7 Plt Count 194 D MPV 8.7 Sodium 142 Potassium 3.9 Chloride 106 Carbon Dioxide 30 D Anion Gap 6 L BUN 14 Creatinine 0.5 L Creat Clearance w eGFR > 60 Random Glucose 88 Calcium 8.2 L Total Bilirubin 0.5 AST 25 D ALT 26 D Alkaline Phosphatase 53 Total Protein 6.7 Albumin 2.8 L RPR Titer Nonreactive HIV 1&2 Antibody Screen HIV P24 Antigen 12/03/17 07:00 WBC RBC Hgb Hct MCV MCH MCHC RDW Plt Count MPV Sodium Potassium Chloride Carbon Dioxide Anion Gap BUN Creatinine Creat Clearance w eGFR Random Glucose Calcium Total Bilirubin AST ALT Alkaline Phosphatase Total Protein Albumin RPR Titer HIV 1&2 Antibody Screen Negative HIV P24 Antigen Negative LABS NOTED. UA RESULTS PENDING. 12/06/17 13:30 Assessment: 12/06/17 13:30 WITHDRAWAL SYMPTOMS. Plan: CONTINUE DETOX. PATIENT SCHEDULED FOR D/C TOMORROW.
[2017-12-06] MEDS: MELATONIN 5 MG TABLETS PO PRN (22:15)
[2017-12-06] MEDS: THIAMINE HCL 100 MG TABLET (FP) PO SCH (22:15)
[2017-12-06] MEDS: CYCLOBENZAPRINE HCL 10 MG TABLET (FP) PO PRN (22:15)
[2017-12-07] MEDS ORDERED: METHADONE HCL 5 MG TABLET (FOR DETOX USE ONLY) PO ONE (06:00)
[2017-12-07 06:54] VITALS: BP 134/82; PULSE 69; TEMP 97
[2017-12-07] MEDS: NICOTINE 14 MG/24 HOURS TOPICAL PATCH TD SCH (11:05)
[2017-12-07] MEDS: PRENATAL VITAMINS W/ FOLIC ACID TABLET (FP) PO SCH (11:05)
--- NOTE | 2017-12-07 14:54 | PN ---
BHS Progress Note (SOAP) Subjective: pt to be discharged today Objective: 12/07/17 14:53 Vital Signs - 24 hr 12/06/17 12/06/17 12/07/17 17:50 22:00 00:30 Temperature 98.6 F 98.8 F Pulse Rate 90 86 Respiratory 18 18 18 Rate Blood Pressure 124/78 129/88 12/07/17 12/07/17 03:30 06:53 Temperature 97 F L Pulse Rate 69 Respiratory 18 18 Rate Blood Pressure 134/82 Laboratory Tests 12/03/17 12/03/17 12/03/17 07:00 07:00 07:00 WBC 4.9 RBC 4.67 Hgb 12.7 Hct 38.0 MCV 81.4 MCH 27.3 MCHC 33.5 RDW 14.7 Plt Count 194 D MPV 8.7 Sodium 142 Potassium 3.9 Chloride 106 Carbon Dioxide 30 D Anion Gap 6 L BUN 14 Creatinine 0.5 L Creat Clearance w eGFR > 60 Random Glucose 88 Calcium 8.2 L Total Bilirubin 0.5 AST 25 D ALT 26 D Alkaline Phosphatase 53 Total Protein 6.7 Albumin 2.8 L RPR Titer Nonreactive HIV 1&2 Antibody Screen HIV P24 Antigen 12/03/17 07:00 WBC RBC Hgb Hct MCV MCH MCHC RDW Plt Count MPV Sodium Potassium Chloride Carbon Dioxide Anion Gap BUN Creatinine Creat Clearance w eGFR Random Glucose Calcium Total Bilirubin AST ALT Alkaline Phosphatase Total Protein Albumin RPR Titer HIV 1&2 Antibody Screen Negative HIV P24 Antigen Negative Assessment: 12/07/17 14:53 52 yo male with hx of IV heroin, nicotine and cocaine dependence is here seeking detox. PMHX Hep C, asthma , HTN Plan: pt to be discharged today
--- NOTE | 2017-12-07 14:57 | DS ---
[facility] Detox Discharge Summary Admission Date: 12/02/17 Discharge Date: 12/07/17 - History Present History: Alcohol Dependence - Physical Exam Results Vital Signs: Vital Signs Temperature 97 F L 12/07/17 06:53 Pulse Rate 69 12/07/17 06:53 Respiratory Rate 18 12/07/17 06:53 Blood Pressure 134/82 12/07/17 06:53 O2 Sat by Pulse Oximetry (%) Pertinent Admission Physical Exam Findings: 52 yo male with hx of IV heroin, nicotine and cocaine dependence is here seeking detox. PMHX Hep C, asthma , HTN - Treatment Hospital Course: Detox Protocol Followed, Detoxed Safely, Responded well, Discharged Condition Good - Medication Discharge Medications: Ambulatory Orders Albuterol Sulfate Inhaler - [Ventolin HFA Inhaler -] 1 - 2 inh IH Q4H #1 inhaler 12/07/17 Amlodipine Besylate [Norvasc -] 10 mg PO DAILY #30 tablet 12/07/17 - Diagnosis (1) Alcohol dependence with uncomplicated withdrawal Status: Acute (2) Asthma Status: Chronic Qualifiers: Asthma severity: mild Asthma persistence: intermittent Asthma complication type: uncomplicated Qualified Code(s): J45.20 - Mild intermittent asthma, uncomplicated (3) Hypertension Status: Chronic Qualifiers: Hypertension type: essential hypertension Qualified Code(s): I10 - Essential (primary) hypertension - AMA Did Patient Leave Against Medical Advice: No
== END 2017-12-07 12:07 | disposition home or self-care (01) | DRG 774 ==
LOC: YASAS 17:05 → Y3N 21:09
PROVIDERS: ADMIT Surgery; ATTEND Surgery
PROC: HZ2ZZZZ Detoxification Services for Substance Abuse Treatment (ICD-10-PCS; principal; 2017-12-02)
DX: F10.230 Alcohol dependence with withdrawal, uncomplicated (principal); F14.20 Cocaine dependence, uncomplicated; F17.210 Nicotine dependence, cigarettes, uncomplicated; I10 Essential (primary) hypertension; J45.20 Mild intermittent asthma, uncomplicated; B18.2 Chronic viral hepatitis C; R63.4 Abnormal weight loss; Z68.22 Body mass index [BMI] 22.0-22.9, adult; Z59.0 Homelessness
CPT/HCPCS: 36415; 80053; 85027; 86593; 87389; 93005; 93010